=== PATIENT | female | born 1965 | race Caucasian/White ===

== ENCOUNTER 2017-05-22 19:13 | Emergency (ER) | payer BC, OTHER ==
[~2017-05-22] VITALS: Ht 152.4 cm; Wt 72.0 kg
[2017-05-22 19:20] VITALS: TEMP 37.1; Ht 152.4 cm; Wt 72.0 kg
--- NOTE | 2017-05-22 19:56 | DIAGNOSTIC IMAGING REPORT ---
LEFT ANKLE MIN 3 VIEWS ROUTINE CLINICAL HISTORY: Left ankle pain following injury. COMPARISON: None FINDINGS: Alignment of the left ankle is anatomic. There is no acute fracture. There is moderate lateral ankle soft tissue swelling. IMPRESSION: 1. No acute fracture or dislocation of the left ankle. 2. Moderate lateral ankle soft tissue swelling. Electronically signed by: Fercho Richey M.D. 05/22/2017 7:54 PM Dictated Date/Time: 05/22/2017 7:54 PM
--- NOTE | 2017-05-22 19:59 | EMERGENCY ROOM VISIT NOTE ---
History First contact with patient: 19:27 Chief Complaint: ANKLE PAIN Stated Complaint: POSSIBLE BROKEN ANKLE History of Present Illness The patient is a 51 year old female who presents to the Emergency Room with complaints of a left ankle injury after stepping in a hole in her yard approximately one half hour prior to arrival. She reports significant swelling of the outer aspect of the ankle. She felt several pops when she twisted the ankle. She denies any pain radiating into the leg or knee region. Denies paresthesias or numbness of the left foot or toes. The patient rates her discomfort a 4 out of 10. Review of Systems 10 system review was performed and was negative except for pertinent positives and negatives as indicated in history of present illness Past Medical/Surgical History Medical Problems: (1) No significant past medical history Surgical Problems: (1) History of delivery Family History FH: cancer FH: diabetes mellitus FH: heart disease FH: hypertension Social History Smoking Status: Current Every Day Smoker Alcohol Use: none Marital Status: Occupation Status: employed Physical Exam Vital Signs Date Time Temp Pulse Resp B/P (MAP) Pulse Ox O2 Delivery O2 Flow Rate FiO2 05/22/17 19:20 37.1 78 18 124/84 98 Room Air Physical Exam CONSTITUTIONAL: Healthy and well nourished. HEENT: Normocephalic, atraumatic. Pupils equal, round and reactive. NECK: Full active range of motion without discomfort. MUSCULOSKELETAL: Examination shows diffuse lateral edema without any puncture wounds. She is tender over the distal fibula and lateral ligaments. She has no focal tenderness over the deltoid ligament or medial malleolus. Negative anterior draw. No focal tenderness across the dorsal midfoot, metatarsals, phalanges, calcaneus or Achilles tendon. Pedal pulses are intact. INTEGUMENTARY: No rash or other significant dermatologic conditions noted. NEUROLOGIC: No focal neurologic deficits noted. Left foot and toes are sensory intact. Medical Decision & Procedures ER Provider Diagnostic Interpretation: My interpretation of left ankle x-rays does not show any acute fractures, dislocation or ankle mortise asymmetry. Radiologist report is as follows: LEFT ANKLE MIN 3 VIEWS ROUTINE CLINICAL HISTORY: Left ankle pain following injury. COMPARISON: None FINDINGS: Alignment of the left ankle is anatomic. There is no acute fracture. There is moderate lateral ankle soft tissue swelling. IMPRESSION: 1. No acute fracture or dislocation of the left ankle. 2. Moderate lateral ankle soft tissue swelling. ED Course History and physical exam were performed. Nurse's notes were reviewed. Vital signs were reviewed and normal. The patient refused any analgesics on initial exam. X-rays of the left ankle were normal. The patient reports that she has crutches at home. She was instructed to ice and elevate ankle for swelling. Ibuprofen and Tylenol as needed for pain. Follow-up with orthopedics or family doctor if symptoms are not improving within the next 5-7 days. The patient was happy with plan of care, voiced understanding of all discharge instructions, and rated her pain a 3 out of 10 at the time of discharge. Medical Decision Medication Reconcilliation Current Medication List: was personally reviewed by me Blood Pressure Screening Patient's blood pressure: Normal blood pressure Impression Primary Impression: Left ankle sprain Departure Information Referrals No Doctor, Assigned (PCP) Patient Instructions My [facility] Health Problem Qualifiers Primary Impression: Left ankle sprain Encounter type: initial encounter Involved ligament of ankle: calcaneofibular ligament Qualified Codes: S93.412A - Sprain of calcaneofibular ligament of left ankle, initial encounter
[2017-05-22 20:24] VITALS: BP 128/75; PULSE 76; O2SAT 98
== END 2017-05-22 20:25 | disposition home or self-care (01) ==
LOC: C.EDB 19:17 → C.EDD 20:25
DX: S93.412A Sprain of calcaneofibular ligament of left ankle, initial encounter (principal); X50.1XXA Overexertion from prolonged static or awkward postures, initial encounter; Y93.89 Activity, other specified; Y99.8 Other external cause status; F17.200 Nicotine dependence, unspecified, uncomplicated; Z98.891 History of uterine scar from previous surgery; Z83.3 Family history of diabetes mellitus; Z82.49 Family history of ischemic heart disease and other diseases of the circulatory system